=== PATIENT | female | born 1990 | race Hispanic/Latino ===

== ENCOUNTER → 2017-08-31 | Outpatient (CLI) | payer OTHER | END | disposition home or self-care (01) | LOC: RAH 11:06 | PROVIDERS: ATTEND Obstetrics & Gynecology | DX: Z34.82 Encounter for supervision of other normal pregnancy, second trimester (principal); Z3A.19 19 weeks gestation of pregnancy | CPT/HCPCS: 76805 ==

== ENCOUNTER 2018-01-21 05:48 | Inpatient (IN) | payer OTHER ==
[~2018-01-21] VITALS: Ht 167.6 cm; Wt 83.5 kg
[2018-01-21] MEDS ORDERED: LACTATED RINGERS 1000ML 1,000 ML IV PRN (06:10)
[2018-01-21] MEDS ORDERED: NALOXONE HCL 0.4 MG/1 ML ML IV PRN (06:15)
[2018-01-21] MEDS ORDERED: EPHEDRINE SULFATE 50 MG/ML AMPULE IVP PRN (06:15)
[2018-01-21] MEDS ORDERED: LACTATED RINGERS 500 ML 500 ML IV PRN (06:15)
[2018-01-21] MEDS ORDERED: ROPIVACAINE 0.2%200ML EPIDURAL 200 ML EP SCH (06:15)
[2018-01-21 06:46] LABS: HEMATOCRIT 37.1 % (36-48); MEAN CORPUSCULAR HEMOGLOBIN 29.8 pg (27.0-33.0); MEAN CORPUSCULAR HGB CONC 32.8 g/dL (32.0-36.0); PLATELET COUNT (AUTO) 211 K/uL (130-400); RED BLOOD CELL COUNT(AUTO) 4.08 MIL/uL (4.00-5.50); RED CELL DISTRIBUTION WIDTH 13.7 % (11.0-15.5); WHITE BLOOD COUNT (AUTO) 13.7 K/uL (4.8-10.8)
[2018-01-21 06:53] LABS: APPEARANCE,URINE Cloudy (CLEAR); BILIRUBIN,URINE Negative (NEGATIVE); COLOR,URINE Yellow (YELLOW); GLUCOSE, URINE (UA) Negative (NEGATIVE); KETONES,URINE Negative (NEGATIVE); LEUKOCYTE ESTERASE ,URINE Large (NEGATIVE); NITRATE,URINE Negative (NEGATIVE); OCCULT BLOOD,URINE Trace (NEGATIVE); PH,URINE 7.5 (5.0-8.0); PROTEIN,URINE Negative (NEGATIVE); UROBILINOGEN,URINE 0.2 mg/dL (0.2-1.0)
[2018-01-21] MEDS ORDERED: LACTATED RINGERS 1000ML 1,000 ML IV ONE (06:55)
[2018-01-21] MEDS ORDERED: OXYTOCIN 10 USP UNITS/ML ONE (06:55)
[2018-01-21 07:18] LABS: SQUAMOUS EPITHELIAL CELL,UR Moderate /HPF (0-2)
[2018-01-21 07:19] LABS: BACTERIA,URINE Many /HPF (None Seen); WBC,URINE 51-100 /HPF (0-1)
[2018-01-21 07:20] LABS: RBC,URINE 0-1 /HPF (0-1)
[2018-01-21] MEDS: OXYTOCIN 10 USP UNITS/ML 20 UNIT in LACTATED RINGERS 1000ML 1,000 ML IV SCH (07:42)
[2018-01-22] MEDS ORDERED: LACTATED RINGERS 1000ML 1,000 ML IV ONE (04:20)
[2018-01-22] MEDS ORDERED: OXYTOCIN 10 USP UNITS/ML ONE ×3 (04:20→13:19)
[2018-01-22] MEDS ORDERED: AMPICILLIN 2GM+NS 100ML 100 ML IV SCH (05:00)
[2018-01-22] MEDS: OXYTOCIN 10 USP UNITS/ML 20 UNIT in LACTATED RINGERS 1000ML 1,000 ML IV SCH (05:07)
[2018-01-22] MEDS ORDERED: FENTANYL CITRATE PF 50 MCG/1 ML 2ML VIAL ONE (07:54)
[2018-01-22] MEDS ORDERED: EPHEDRINE SULFATE 50 MG/ML AMPULE ONE (08:01)
[2018-01-22 08:22] LABS: HEPATITIS Bs ANTIGEN SCREEN P Negative (Negative)
[2018-01-22] MEDS ORDERED: LIDOCAINE HCL-MPF 1% 2ML VIAL ONE (11:21)
[2018-01-22] MEDS ORDERED: HYDROCODONE/ACETAMINOPHEN 5/325 MG TAB PO PRN (12:00)
[2018-01-22] MEDS ORDERED: MEASLES/MUMPS/RUBELLA VACCINE, LIVE 0.5 ML/VIAL SQ PRN (12:00)
[2018-01-22] MEDS ORDERED: ACETAMINOPHEN-CODEINE 300/30MG TAB PO PRN (12:00)
[2018-01-22] MEDS ORDERED: BENZOCAINE/LANOLIN/ALOE VERA 60 ML AEROSOL TP PRN (12:00)
[2018-01-22] MEDS ORDERED: WITCH HAZEL 1 PAD TP PRN (12:00)
[2018-01-22] MEDS ORDERED: DIPH,PERTUSS(ACELL),TET VAC/PF 0.5 ML VIAL IM PRN (12:00)
[2018-01-22] MEDS ORDERED: LANOLIN 30GM OINTMENT TP PRN (12:00)
[2018-01-22] MEDS ORDERED: ACETAMINOPHEN 325 MG TAB PO PRN (12:00)
[2018-01-22 13:43] VITALS: BP 115/53
[2018-01-22] MEDS ORDERED: PREN-68 PO (13:44)
[2018-01-22] MEDS: PROMETHAZINE HCL 25 MG/ML 1ML AMPULE IM SCH (14:45)
[2018-01-22] MEDS: MEPERIDINE-PF 50 MG/ML SYG IM SCH (14:45)
[2018-01-22] MEDS: IBUPROFEN 600 MG TABLET PO PRN ×2 (15:00→23:24)
[2018-01-22 15:59] VITALS: BP 112/59
[2018-01-22 19:56] VITALS: BP 101/66
[2018-01-22] MEDS: DOCUSATE SODIUM 100 MG CAP PO SCH (20:31)
[2018-01-22] MEDS: AMPICILLIN 1GM+NS 50ML 50 ML IV SCH (21:00)
[2018-01-23 00:04] VITALS: BP 100/61
[2018-01-23] MEDS: AMPICILLIN 1GM+NS 50ML 50 ML IV SCH ×4 (01:00→06:29)
[2018-01-23] MEDS: MEPERIDINE-PF 50 MG/ML SYG IM SCH (01:15)
[2018-01-23] MEDS: PROMETHAZINE HCL 25 MG/ML 1ML AMPULE IM SCH (01:15)
[2018-01-23 03:31] VITALS: BP 100/62
[2018-01-23] MEDS: IBUPROFEN 600 MG TABLET PO PRN ×2 (05:26→12:36)
[2018-01-23 07:50] VITALS: BP 95/51
[2018-01-23] MEDS: DOCUSATE SODIUM 100 MG CAP PO SCH (08:33)
[2018-01-23 13:00] VITALS: BP 101/62
== END 2018-01-23 14:50 | disposition home or self-care (01) | DRG 807 ==
LOC: LDH 05:48 → WSH 01-22 13:35 → EDSTATUS 02-02 05:47
PROVIDERS: ADMIT Obstetrics & Gynecology; ATTEND Obstetrics & Gynecology
PROC: 10E0XZZ Delivery of Products of Conception, External Approach (ICD-10-PCS; principal; 2018-01-22)
PROC: 0KQM0ZZ Repair Perineum Muscle, Open Approach (ICD-10-PCS; 2018-01-22)
PROC: 10907ZC Drainage of Amniotic Fluid, Therapeutic from Products of Conception, Via Natural or Artificial Opening (ICD-10-PCS; 2018-01-22)
PROC: 3E0R3BZ Introduction of Anesthetic Agent into Spinal Canal, Percutaneous Approach (ICD-10-PCS; 2018-01-22)
PROC: 00HU33Z Insertion of Infusion Device into Spinal Canal, Percutaneous Approach (ICD-10-PCS; 2018-01-22)
PROC: 3E0234Z Introduction of Serum, Toxoid and Vaccine into Muscle, Percutaneous Approach (ICD-10-PCS; 2018-01-22)
DX: O69.81X0 Labor and delivery complicated by cord around neck, without compression, not applicable or unspecified (principal); Z3A.38 38 weeks gestation of pregnancy; O36.8130 Decreased fetal movements, third trimester, not applicable or unspecified; O70.1 Second degree perineal laceration during delivery; Z37.0 Single live birth; Z23 Encounter for immunization
CPT/HCPCS: 36415; 81001; 85027; 86592; 86850; 86900; 86901; 87340; 90715; A4314; A4351; J0290; J2590; J3010; J3490; J7120

== ENCOUNTER → 2019-09-15 | Outpatient (CLI) | payer OTHER ==
[~2019-09-15] MED LIST: PREN-68 PO
[2019-09-15 09:06] LABS: BASOPHILS % (AUTO) 0.6 % (0.0-5.0); EOSINOPHILS % (AUTO) 1.1 % (0.0-8.0); HEMATOCRIT 40.6 % (36-48); LYMPHOCYTES % (AUTO) 26.7 % (21.0-51.0); MEAN CORPUSCULAR HEMOGLOBIN 30.2 pg (27.0-33.0); MEAN CORPUSCULAR HGB CONC 33.5 g/dL (32.0-36.0); MEAN CORPUSCULAR VOLUME 90.2 fL (79-99); MONOCYTES % (AUTO) 4.7 % (3.0-13.0); NEUTROPHILS % (AUTO) 66.7 % (40.0-77.0); PLATELET COUNT (AUTO) 290 K/uL (130-400); WHITE BLOOD COUNT (AUTO) 6.4 K/uL (4.8-10.8)
[2019-09-15 09:19] LABS: HEMOGLOBIN A1C 5.4 % (4.0-6.0)
[2019-09-15 09:28] LABS: ALBUMIN 3.8 g/dL (3.5-5.0); BILIRUBIN,TOTAL 0.8 mg/dL (0.2-1.0); CREATININE 0.8 mg/dL (0.5-1.5); POTASSIUM 3.9 mmol/L (3.5-5.1); THYROID STIMULATING HORMONE 1.77 uIU/mL (0.36-3.74); TOTAL PROTEIN, SERUM 7.4 g/dL (6.0-8.3)
== END | disposition home or self-care (01) ==
LOC: LAB 08:26
PROVIDERS: ATTEND Obstetrics & Gynecology
DX: Z13.1 Encounter for screening for diabetes mellitus (principal); Z13.89 Encounter for screening for other disorder; Z13.220 Encounter for screening for lipoid disorders; Z13.228 Encounter for screening for other metabolic disorders; Z13.0 Encounter for screening for diseases of the blood and blood-forming organs and certain disorders involving the immune mechanism
CPT/HCPCS: 36415; 80053; 80061; 82306; 83036; 84443; 85025

== ENCOUNTER → 2019-12-31 | Outpatient (CLI) | payer OTHER | END | disposition home or self-care (01) | LOC: RAH 10:00 | PROVIDERS: ATTEND Obstetrics & Gynecology | DX: Z34.91 Encounter for supervision of normal pregnancy, unspecified, first trimester (principal); Z3A.10 10 weeks gestation of pregnancy; N91.1 Secondary amenorrhea | CPT/HCPCS: 76801 ==

== ENCOUNTER → 2020-03-09 | Outpatient (CLI) | payer OTHER | END | disposition home or self-care (01) | LOC: RAH 03-08 14:19 | PROVIDERS: ATTEND Obstetrics & Gynecology | DX: Z36.3 Encounter for antenatal screening for malformations (principal); O32.1XX0 Maternal care for breech presentation, not applicable or unspecified; Z3A.21 21 weeks gestation of pregnancy | CPT/HCPCS: 76805 ==

== ENCOUNTER → 2020-05-14 | Outpatient (CLI) | payer OTHER | END | disposition home or self-care (01) | LOC: RAH 13:14 | PROVIDERS: ATTEND Obstetrics & Gynecology | DX: Z36.9 Encounter for antenatal screening, unspecified (principal); Z3A.31 31 weeks gestation of pregnancy | CPT/HCPCS: 76805 ==

== ENCOUNTER → 2020-06-25 | Outpatient (CLI) | payer OTHER ==
[2020-06-25 09:02] LABS: BASOPHILS % (AUTO) 0.4 % (0.0-5.0); EOSINOPHILS % (AUTO) 0.7 % (0.0-8.0); HEMATOCRIT 37.5 % (36-48); LYMPHOCYTES % (AUTO) 20.4 % (21.0-51.0); MEAN CORPUSCULAR HEMOGLOBIN 30.3 pg (27.0-33.0); MEAN CORPUSCULAR HGB CONC 33.3 g/dL (32.0-36.0); MEAN CORPUSCULAR VOLUME 90.8 fL (79-99); MONOCYTES % (AUTO) 4.2 % (3.0-13.0); NEUTROPHILS % (AUTO) 73.6 % (40.0-77.0); PLATELET COUNT (AUTO) 192 K/uL (130-400); RED BLOOD CELL COUNT(AUTO) 4.13 MIL/uL (4.00-5.50); RED CELL DISTRIBUTION WIDTH 12.7 % (11.0-15.5); WHITE BLOOD COUNT (AUTO) 9.5 K/uL (4.8-10.8)
[2020-06-25 09:12] LABS: AMPHET/METH SCREEN,URINE NEGATIVE (NEGATIVE); BARBITURATE SCREEN, URINE NEGATIVE (NEGATIVE); BENZODIAZEPINES SCREEN,URINE NEGATIVE (NEGATIVE); CANNABINOID SCREEN,URINE NEGATIVE (NEGATIVE); COCAINE SCREEN,URINE NEGATIVE (NEGATIVE); CREATININE,URINE RANDOM 62 mg/dL (30-135); OPIATE SCREEN,URINE NEGATIVE (NEGATIVE); PHENCYCLIDINE SCREEN,URINE NEGATIVE (NEGATIVE)
[2020-06-26 08:21] LABS: RAPID PLASMA REAGIN NONREACTIVE (NONREACTIVE)
== END | disposition home or self-care (01) ==
LOC: LAB 08:07
PROVIDERS: ATTEND Obstetrics & Gynecology
DX: Z36.89 Encounter for other specified antenatal screening (principal); Z3A.37 37 weeks gestation of pregnancy
CPT/HCPCS: 36415; 80305; 82570; 85025; 86592; 86701; 87088; 87390; 87486; 87797

== ENCOUNTER 2020-07-06 05:16 | Inpatient (IN) | payer OTHER ==
[~2020-07-06] VITALS: Ht 165.1 cm; Wt 88.5 kg
[2020-07-06] MEDS ORDERED: LACTATED RINGERS 1000ML 1,000 ML IV ONE (05:21)
[2020-07-06] MEDS ORDERED: OXYTOCIN-LR 20 UNITS/1000 ML 1,000 ML IV ONE (05:22)
[2020-07-06] MEDS ORDERED: EPHEDRINE SULFATE 50 MG/ML AMPULE IVP PRN (05:30)
[2020-07-06] MEDS ORDERED: LACTATED RINGERS 1000ML 1,000 ML IV PRN (05:30)
[2020-07-06] MEDS ORDERED: LACTATED RINGERS 500 ML 500 ML IV PRN (05:30)
[2020-07-06] MEDS ORDERED: NALOXONE HCL 0.4 MG/1 ML ML IV PRN (05:30)
[2020-07-06] MEDS ORDERED: OXYTOCIN-LR 20 UNITS/1000 ML 1,000 ML IV SCH ×2 (05:30→16:15)
[2020-07-06] MEDS ORDERED: ROPIVACAINE 0.2% 100ML VIAL 100 ML EP SCH (05:30)
[2020-07-06] MEDS ORDERED: BUTORPHANOL TARTRATE 2 MG/ML IVP PRN (05:45)
[2020-07-06] MEDS ORDERED: AMPICILLIN 2GM+NS 100ML 100 ML IV SCH (06:00)
[2020-07-06 06:06] LABS: APPEARANCE,URINE Clear (CLEAR); BILIRUBIN,URINE Negative (NEGATIVE); COLOR,URINE Yellow (YELLOW); GLUCOSE, URINE (UA) Negative (NEGATIVE); KETONES,URINE Negative (NEGATIVE); LEUKOCYTE ESTERASE ,URINE Negative (NEGATIVE); NITRATE,URINE Negative (NEGATIVE); OCCULT BLOOD,URINE Negative (NEGATIVE); PH,URINE 6.5 (5.0-8.0); PROTEIN,URINE Negative (NEGATIVE); UROBILINOGEN,URINE 0.2 mg/dL (0.2-1.0)
[2020-07-06 06:20] VITALS: BP 98/61
[2020-07-06] MEDS ORDERED: AMPICILLIN 2GM+NS 100ML 100 ML IV ONE (06:24)
[2020-07-06 06:30] LABS: HEMATOCRIT 33.8 % (36-48); MEAN CORPUSCULAR HEMOGLOBIN 30.9 pg (27.0-33.0); MEAN CORPUSCULAR HGB CONC 34.3 g/dL (32.0-36.0); MEAN CORPUSCULAR VOLUME 89.9 fL (79-99); RED BLOOD CELL COUNT(AUTO) 3.76 MIL/uL (4.00-5.50); RED CELL DISTRIBUTION WIDTH 12.9 % (11.0-15.5); WHITE BLOOD COUNT (AUTO) 9.5 K/uL (4.8-10.8)
[2020-07-06] MEDS ORDERED: FENTANYL CITRATE PF 50 MCG/1 ML 2ML VIAL ONE (09:47)
[2020-07-06] MEDS: AMPICILLIN 1GM+NS 50ML 50 ML IV SCH ×3 (10:27→23:56)
[2020-07-06] MEDS ORDERED: LIDOCAINE HCL 1% 20 ML VIAL ONE (15:08)
[2020-07-06] MEDS ORDERED: MEASLES/MUMPS/RUBELLA VACCINE, LIVE 0.5 ML/VIAL SQ PRN (16:15)
[2020-07-06] MEDS ORDERED: ACETAMINOPHEN 325 MG TAB PO PRN (16:15)
[2020-07-06] MEDS ORDERED: ACETAMINOPHEN WITH CODEINE 1 TAB TAB PO PRN (16:15)
[2020-07-06] MEDS ORDERED: BENZOCAINE/LANOLIN/ALOE VERA 60 ML AEROSOL TP PRN (16:15)
[2020-07-06] MEDS ORDERED: WITCH HAZEL 1 PAD TP PRN (16:15)
[2020-07-06] MEDS ORDERED: LANOLIN 30GM OINTMENT TP PRN (16:15)
[2020-07-06] MEDS ORDERED: DIPH,PERTUSS(ACELL),TET VAC/PF 0.5 ML VIAL IM PRN (16:15)
[2020-07-06 18:46] VITALS: BP 111/68
[2020-07-06 19:35] VITALS: BP 108/67
[2020-07-06] MEDS: IBUPROFEN 600 MG TABLET PO PRN (19:41)
[2020-07-06] MEDS ORDERED: DOCUSATE SODIUM 100 MG CAP PO SCH (21:00)
[2020-07-06 23:10] VITALS: BP 103/60
[2020-07-07 03:48] VITALS: BP 80/44
[2020-07-07] MEDS: AMPICILLIN 1GM+NS 50ML 50 ML IV SCH (06:00)
[2020-07-07 06:17] LABS: HEPATITIS Bs ANTIGEN SCREEN P Negative (Negative)
[2020-07-07 07:27] VITALS: BP 113/70
[2020-07-07] MEDS ORDERED: ONDANSETRON 4MG INJ IVP SCH (07:45)
[2020-07-07] MEDS ORDERED: MEPERIDINE-PF 25 MG/ML SYG IVP SCH (07:45)
[2020-07-07] MEDS ORDERED: ONDANSETRON 4MG INJ ONE (08:08)
[2020-07-07] MEDS ORDERED: MEPERIDINE-PF 25 MG/ML SYG ONE (08:08)
[2020-07-07] MEDS ORDERED: FENTANYL CITRATE PF 50 MCG/1 ML 2ML VIAL ONE (08:39)
[2020-07-07] MEDS ORDERED: LIDOCAINE 2%-EPI 1:200,000 20 ML VIAL IJ ONE (08:39)
[2020-07-07] MEDS ORDERED: MIDAZOLAM HCL 1 MG/ML 2ML VIAL ONE ×2 (08:41→09:04)
[2020-07-07] MEDS ORDERED: CEFAZOLIN SODIUM 1 GM VIAL ONE (08:54)
[2020-07-07] MEDS ORDERED: CALDOLOR 800MG+NS 250ML 250 ML IV ONE (08:54)
[2020-07-07] MEDS ORDERED: CEFAZOLIN SODIUM 1 GM VIAL IVP SCH (08:55)
[2020-07-07] MEDS ORDERED: PROPOFOL 10 MG/ML 20ML VIAL IV ONE (08:56)
[2020-07-07] MEDS ORDERED: CALDOLOR 800MG+NS 250ML 250 ML IV SCH (09:15)
[2020-07-07] MEDS ORDERED: HYDROCODONE/ACETAMINOPHEN 5/325 MG TAB PO PRN (09:45)
[2020-07-07] MEDS: IBUPROFEN 600 MG TABLET PO PRN (13:37)
[2020-07-07 16:48] VITALS: BP 93/53
== END 2020-07-07 18:00 | disposition home or self-care (01) | DRG 798 ==
LOC: LDH 05:16 → WSH 18:05
PROVIDERS: ADMIT Obstetrics & Gynecology; ATTEND Obstetrics & Gynecology
PROC: 10E0XZZ Delivery of Products of Conception, External Approach (ICD-10-PCS; principal; 2020-07-06)
PROC: 0KQM0ZZ Repair Perineum Muscle, Open Approach (ICD-10-PCS; 2020-07-06)
PROC: 10907ZC Drainage of Amniotic Fluid, Therapeutic from Products of Conception, Via Natural or Artificial Opening (ICD-10-PCS; 2020-07-06)
PROC: 10907ZC Drainage of Amniotic Fluid, Therapeutic from Products of Conception, Via Natural or Artificial Opening (ICD-10-PCS; 2020-07-06)
PROC: 3E0R3BZ Introduction of Anesthetic Agent into Spinal Canal, Percutaneous Approach (ICD-10-PCS; 2020-07-06)
PROC: 00HU33Z Insertion of Infusion Device into Spinal Canal, Percutaneous Approach (ICD-10-PCS; 2020-07-06)
PROC: 3E033VJ Introduction of Other Hormone into Peripheral Vein, Percutaneous Approach (ICD-10-PCS; 2020-07-06)
PROC: 3E0234Z Introduction of Serum, Toxoid and Vaccine into Muscle, Percutaneous Approach (ICD-10-PCS; 2020-07-06)
PROC: 3E0134Z Introduction of Serum, Toxoid and Vaccine into Subcutaneous Tissue, Percutaneous Approach (ICD-10-PCS; 2020-07-06)
PROC: 0UB70ZZ Excision of Bilateral Fallopian Tubes, Open Approach (ICD-10-PCS; 2020-07-07)
DX: O24.420 Gestational diabetes mellitus in childbirth, diet controlled (principal); Z37.0 Single live birth; O99.824 Streptococcus B carrier state complicating childbirth; Z3A.37 37 weeks gestation of pregnancy; O70.1 Second degree perineal laceration during delivery; Z30.2 Encounter for sterilization; Z23 Encounter for immunization
CPT/HCPCS: 36415; 81003; 82947; 85027; 86592; 86644; 86645; 86694; 86695; 86762; 86777; 86778; 86790; 86850; 86900; 86901; 87340; 90715; A4314; A4351; G0378; J0290; J0690; J1741; J2175; J2250; J2405; J2590; J2704; J2795; J3010; J3490; J7030; J7120

== ENCOUNTER 2022-01-13 15:15 | Inpatient (IN) | payer OTHER ==
[~2022-01-13] VITALS: Ht 165.1 cm; Wt 74.8 kg
[2022-01-13 11:38] LABS: BASOPHILS % (AUTO) 0.5 % (0.0-5.0); EOSINOPHILS % (AUTO) 0.7 % (0.0-8.0); HEMATOCRIT 41.1 % (36-48); LYMPHOCYTES % (AUTO) 34.7 % (21.0-51.0); MEAN CORPUSCULAR HEMOGLOBIN 29.4 pg (27.0-33.0); MEAN CORPUSCULAR HGB CONC 33.8 g/dL (32.0-36.0); MEAN CORPUSCULAR VOLUME 86.9 fL (79-99); MONOCYTES % (AUTO) 4.4 % (3.0-13.0); NEUTROPHILS % (AUTO) 59.5 % (40.0-77.0); PLATELET COUNT (AUTO) 273 K/uL (130-400); RED BLOOD CELL COUNT(AUTO) 4.73 MIL/uL (4.00-5.50); RED CELL DISTRIBUTION WIDTH 11.9 % (11.0-15.5); WHITE BLOOD COUNT (AUTO) 5.7 K/uL (4.8-10.8)
[2022-01-16] VITALS (21 sets, daily range): BP systolic 87–113; BP diastolic 47–65
[2022-01-16] MEDS ORDERED: CEFAZOLIN SODIUM 1 GM VIAL IVP SCH (06:30)
[2022-01-16] MEDS ORDERED: CALDOLOR 800MG+NS 250ML 250 ML IV SCH (06:30)
[2022-01-16] MEDS ORDERED: MORPHINE PF 100MG/10ML AMP IV ONE (06:53)
[2022-01-16] MEDS ORDERED: LACTATED RINGERS 1000ML 1,000 ML IV ONE (08:05)
[2022-01-16] MEDS ORDERED: MIDAZOLAM HCL 1 MG/ML 2ML VIAL ONE ×2 (08:40→09:52)
[2022-01-16] MEDS ORDERED: FENTANYL CITRATE PF 50 MCG/1 ML 2ML VIAL ONE (09:53)
[2022-01-16] MEDS ORDERED: PROPOFOL 10 MG/ML 20ML VIAL IV ONE (09:53)
[2022-01-16] MEDS ORDERED: ROCURONIUM 10MG/1ML SYR 10 MG/ML ML ONE (09:59)
[2022-01-16] MEDS ORDERED: CEFAZOLIN SODIUM 2 GM VIAL IV ONE (10:05)
[2022-01-16] MEDS ORDERED: EPHEDRINE SULFATE 50 MG/ML AMPULE ONE (10:18)
[2022-01-16] MEDS ORDERED: ONDANSETRON 4MG INJ ONE (10:36)
[2022-01-16] MEDS ORDERED: GLYCOPYRROLATE 1 MG/5 ML SYRINGE ONE (11:29)
[2022-01-16] MEDS ORDERED: NEOSTIGMINE 5MG/5ML SYR IV ONE (11:29)
[2022-01-16] MEDS ORDERED: ACETAMINOPHEN WITH CODEINE 1 TAB TAB PO PRN ×2 (12:00)
[2022-01-16] MEDS ORDERED: IBUPROFEN 800 MG TAB PO PRN (12:00)
[2022-01-16] MEDS ORDERED: BISACODYL 10 MG SUPP.RECT RC PRN (12:00)
[2022-01-16] MEDS ORDERED: MEPERIDINE-PF 75 MG/ML SYG IM PRN (12:00)
[2022-01-16] MEDS ORDERED: PROMETHAZINE HCL 25 MG/ML 1ML AMPULE IM PRN ×2 (12:00)
[2022-01-16] MEDS ORDERED: LORATADINE 10 MG TABLET PO PRN (13:00)
[2022-01-16] MEDS: ONDANSETRON 4MG INJ IVP PRN ×2 (13:33→18:23)
[2022-01-16] MEDS ORDERED: EPHEDRINE SULFATE 50 MG/ML AMPULE IVP PRN (14:00)
[2022-01-16] MEDS ORDERED: NALOXONE HCL 0.4 MG/1 ML ML IVP PRN (14:00)
[2022-01-16] MEDS ORDERED: DiphenhydrAMINE HCL 50 MG/ML VIAL IVP PRN (14:00)
[2022-01-16] MEDS ORDERED: ONDANSETRON 4MG INJ IVP PRN (14:00)
[2022-01-16] MEDS ORDERED: MEPERIDINE-PF 25 MG/ML SYG IV PRN (14:00)
[2022-01-16] MEDS: DEXTROSE 5 %-0.45 % NACL 1,000 ML IV PRN (16:23)
[2022-01-16] MEDS: CALDOLOR 800MG+NS 250ML 250 ML IV SCH (20:17)
[2022-01-17] MEDS: DEXTROSE 5 %-0.45 % NACL 1,000 ML IV PRN (01:23)
[2022-01-17] MEDS: CALDOLOR 800MG+NS 250ML 250 ML IV SCH (03:38)
[2022-01-17] MEDS: HYDROCODONE/ACETAMINOPHEN 5/325 MG TAB PO PRN ×3 (03:50→17:26)
[2022-01-17 03:53] VITALS: BP 105/54
[2022-01-17 07:34] VITALS: BP 91/58
[2022-01-17] MEDS: DOCUSATE SODIUM 100 MG CAP PO PRN ×2 (08:10→20:13)
[2022-01-17] MEDS: SIMETHICONE 80 MG TAB.CHEW PO PRN (08:10)
[2022-01-17] MEDS: IBUPROFEN 800 MG TAB PO SCH ×2 (11:12→20:12)
[2022-01-17 12:01] VITALS: BP 96/62
[2022-01-17] MEDS ORDERED: ONDANSETRON 4MG TABLET PO PRN (13:00)
[2022-01-17 16:20] VITALS: BP 105/61
[2022-01-17 19:27] VITALS: BP 92/55
[2022-01-17] MEDS: ACETAMINOPHEN WITH CODEINE 1 TAB TAB PO PRN (21:08)
[2022-01-17 23:05] VITALS: BP 90/58
[2022-01-18 03:17] VITALS: BP 94/57
[2022-01-18] MEDS: IBUPROFEN 800 MG TAB PO SCH ×2 (04:05→12:29)
[2022-01-18 07:10] VITALS: BP 93/59
[2022-01-18] MEDS: ACETAMINOPHEN WITH CODEINE 1 TAB TAB PO PRN (08:59)
[2022-01-18] MEDS: DOCUSATE SODIUM 100 MG CAP PO PRN (08:59)
[2022-01-18] MEDS: SIMETHICONE 80 MG TAB.CHEW PO PRN ×2 (08:59→12:28)
[2022-01-18 11:54] VITALS: BP 90/58
== END 2022-01-18 13:30 | disposition home or self-care (01) | DRG 747 ==
LOC: DAHIP 01-16 06:52 → WSH 01-16 12:25
PROVIDERS: ADMIT Obstetrics & Gynecology; ATTEND Obstetrics & Gynecology
PROC: 0WQN0ZZ Repair Female Perineum, Open Approach (ICD-10-PCS; 2022-01-16)
PROC: 0JQC0ZZ Repair Pelvic Region Subcutaneous Tissue and Fascia, Open Approach (ICD-10-PCS; 2022-01-16)
PROC: 0JQC0ZZ Repair Pelvic Region Subcutaneous Tissue and Fascia, Open Approach (ICD-10-PCS; principal; 2022-01-16 10:05)
DX: N81.11 Cystocele, midline (principal); Z20.822 Contact with and (suspected) exposure to COVID-19
CPT/HCPCS: 36415; 84703; 85025; 86850; 86900; 86901; 87426; A4351; G0378; J0690; J1741; J2250; J2274; J2405; J2704; J2710; J3010; J3490; J7030; J7120; Q0162

== ENCOUNTER 2024-03-28 03:17 | Emergency (ER) | payer OTHER ==
[~2024-03-28] VITALS: Ht 165.1 cm; Wt 62.1 kg
[2024-03-28] MEDS: LIDOCAINE/PRILOCAINE CREAM 5GM TUBE TP SCH (04:02)
[2024-03-28] MEDS: L.E.T. GEL 3ML SYG TP ONE ×2 (04:02)
[2024-03-28] MEDS: LIDOCAINE/PRILOCAINE CREAM 5GM TUBE TP ONE (04:03)
[2024-03-28] MEDS: LIDOCAINE HCL 1% 20 ML VIAL ONE (04:20)
--- NOTE | 2024-03-28 04:20 | NUR ---
INITIAL ORDER FOR L.E.T. GIVEN AT 03:43. L.E.T. IS LIQUID AND NOT GEL. ORDER CHANGED TO EMLA AT 03:44.
--- NOTE | 2024-03-28 04:24 | ERN ---
ED Note History of Present Illness Stated Complaint: FOREIGN BODY IN EAR Chief Complaint: Foreignbody Ear Time Seen by MD: 03:26 Dictation: 33-year-old female presents to the ER complaining of earring stuck inside of her ear cartilage. Patient mentioned that she went to sleep and woke up in the middle of the night feeling pain in the right ear lobe, she noticed that the small piece of candi of the tip of her earring was not visible, reports that her right lobe is painful, swollen, red. Allergies: Coded Allergies: No Known Drug Allergies (Unverified Allergy, Unknown, 01/21/18) Home Meds No Active Prescriptions or Reported Meds Past Medical History Past Medical History: No Pertinent History Surgical History: None Review of System Dictation NEGATIVE EXCEPT PER HPI Constitutional: Negative for fever,chills, and weight loss Eyes: Negative for injury, pain,redness, and discharge ENT: Negative for injury,pain or swelling Cardiovascular: denies chest pain, palpitations, and edema Respiratory: Negative for shortness of breath, cough, and wheezing, Abdomen/GI: Negative for abdominal pain, nausea, vomiting, diarrhea, and constipation Back: Negative for injury and pain : Negative for injury, bleeding and discharge MS/Extremity: Negative for injury and deformity Skin: Negative for rash, and discoloration Neuro: Negative for headache, weakness, numbness, tingling, and seizure Psych: Negative for suicide ideation, homicidal ideation, and hallucinations Initial Vital Sign VS Vital Signs Date Time Temp Pulse Resp B/P (MAP) Pulse Ox O2 Delivery O2 Flow Rate FiO2 03/28/24 03:22 98.2 56 16 100/54 99 Room Air 0 Physical Exam Dictation General: awake, alert, NAD Head/Face: Normocephalic, atraumatic Eyes: PERRL, EOMI, vision at baseline ENT: oral cavity clear, TMs clear, no signs of infection Neck: Trachea midline, supple, no nuchal rigidity Cardiovascular: RRR, normal S1/S2, No MRGs, no JVD Respiratory: CTAB, no respiratory distress, No rales or wheezes Abdomen: Soft , no tender Skin: Warm, dry, normal turgor, no rash MS/Extremity: Pulses equal, no cyanosis, neurovascular intact, FROM Neuro: COAx4, GCS 15, strength 5/5, CN 2-12 intact, normal cerebellar exam, normal gait, Psych: Normal behavior, mood, and affect normal ED Course ED Course Orders Procedure Category Date Status Time Lidocaine/Prilocaine PHA 03/28/24 Complete (Emla) 03:44 L.E.T. Gel 3ml Syg PHA 03/28/24 Complete (L.E.T. Gel 3ml Syg) 04:00 Lidocaine/Prilocaine PHA 03/28/24 In Process (Emla) 04:00 Lidocaine Hcl 1% 20ml PHA 03/28/24 Complete Vial (Lidocaine Hc 04:15 Mupirocin Ointment PHA 03/28/24 In Process (Bactroban Oint) 04:30 Current Medications Medications (Trade) Dose Ordered Sig/Devante Route PRN Reason Start Time Stop Time Status Last Admin Dose Admin Lidocaine HCl (Lidocaine HCl 1% 20ml Vial) 20 ml STK-MED ONCE .ROUTE 03/28/24 04:15 03/28/24 04:15 DC 03/28/24 04:20 Lidocaine/ Epinephrine (L.e.t. Gel 3ml Syg) 3 ml ONCE ONCE TP 03/28/24 04:00 03/28/24 04:02 DC Lidocaine/ Epinephrine (L.e.t. Gel 3ml Syg) 3 ml STK-MED ONCE TP 03/28/24 03:43 03/28/24 03:43 DC Lidocaine/ Prilocaine (Emla) 1 appl ONCE TP 03/28/24 04:00 04/27/24 03:59 03/28/24 04:02 Lidocaine/ Prilocaine (Emla) 1 appl STK-MED ONCE TP 03/28/24 03:44 03/28/24 03:45 DC Mupirocin (Bactroban Oint) 1 APPL ONCE TP 03/28/24 04:30 04/27/24 04:29 Vital Signs Date Time Temp Pulse Resp B/P (MAP) Pulse Ox O2 Delivery O2 Flow Rate FiO2 03/28/24 03:22 98.2 56 16 100/54 99 Room Air 0 Medical Decision Making MDM 33-year-old female who presents to the ER complaining of pain in the right year, she has and ear ringing lodged in the helix of right ear. It has erythema, swelling. Procedure was performed, the earring was dislodged and removed successfully. Mupirocin was prescribed. Procedure Procedure Dictation: There was an earring lodged in the helix of the left ear. There was surrounding erythema and swelling. The area was anesthetized with 0.5 cc of lidocaine 1% without epi. The earring was dislodged and removed successfully with no complications. There is minimal active bleeding. The bleeding stopped after applying pressure for small amount of time. DX & DISP Disposition: Discharge Departure Impression: Primary Impression: Embedded earring of right ear Condition: Stable Scripts No Active Prescriptions or Reported Meds Additional Instructions: RETURN TO ER FOR ANY ACUTE OR WORSENING SYMPTOMS. FOLLOW-UP IN 1-2 DAYS WITH PRIMARY PROVIDER FOR RECHECK OF TODAY'S SYMPTOMS. Referrals: HARINI EM NP (PCP) MACHO LOYA MD Mar 28, 2024 04:24 KAYE GRAHAM Mar 28, 2024 04:29
[2024-03-28] MEDS ORDERED: MUPIROCIN OINTMENT 22 GM TUBE TP SCH (04:30)
[2024-03-28] MEDS ORDERED: MUPI22OI2 TP (04:31)
[2024-03-28] MEDS: NEOMY SULF/BACITRA/POLYMYXIN B 1 EACH PACKET TP ONE (04:35)
[2024-03-28 04:49] VITALS: BP 108/61; PULSE 62; RESP 15; TEMP 98.1; O2SAT 99
== END 2024-03-28 04:49 | disposition home or self-care (01) ==
LOC: EDH 03:17
DX: S00.451A Superficial foreign body of right ear, initial encounter (principal); W45.8XXA Other foreign body or object entering through skin, initial encounter; Y93.89 Activity, other specified; Y92.89 Other specified places as the place of occurrence of the external cause; Y99.8 Other external cause status
CPT/HCPCS: 99284; J3490

== ENCOUNTER → 2024-05-07 | Outpatient (CLI) | payer OTHER ==
[~2024-05-07] MED LIST changes: +MUPI22OI2 TP; -PREN-68 PO
--- NOTE | 2024-05-07 11:15 | HMCIMG ---
ULTRASOUND VENOUS DOPPLER, BILATERAL LOWER EXTREMITIES INDICATION: Bilateral lower extremity pain and swelling TECHNIQUE: Routine grayscale and color Doppler ultrasound of the bilateral lower extremity veins performed. COMPARISON: No priors. FINDINGS: The demonstrated veins of the bilateral lower extremity including the common femoral vein, femoral vein, and popliteal vein are associated with normal compressibility, augmentation, and flow. Normal respiratory variation was identified. No evidence for echogenic intraluminal thrombus formation. IMPRESSION: No sonographic evidence for deep venous thrombosis within the bilateral lower extremity veins.
--- NOTE | 2024-05-07 11:16 | HMCIMG ---
ULTRASOUND ABDOMEN COMPLETE INDICATION: Generalized abdominal pain COMPARISON: None. FINDINGS: The liver is normal in size and echogenicity; no focal lesion demonstrated. The common bile duct caliber measures 3.0 mm. No evidence for calculi, sludge or pericholecystic fluid. No sonographic Colvin's sign elicited by the ultrasound sprayer operator. Wall thickness measures 2.0 mm. The spleen is normal in size and echotexture. The spleen measures 10.7 cm. Visible portions of the pancreas appear unremarkable. The right kidney measures 10.7 x 4.8 x 4.4 cm,and is normal in echogenicity, without evidence for hydronephrosis or shadowing stones. The left kidney measures 11.0 x 5.4 x 4.6 cm,and is normal in echogenicity, without evidence for hydronephrosis or shadowing stones. Visible portions of the abdominal aorta are within normal limits. Visible portions of the inferior vena cava are within normal limits. No free fluid demonstrated. IMPRESSION: No acute upper abdominal abnormality identified.
[2024-05-07 11:46] LABS: BASOPHILS # (AUTO) 0.03 K/uL (0.00-0.20); BASOPHILS % (AUTO) 0.6 % (0.0-5.0); EOSINOPHILS # (AUTO) 0.08 K/uL (0.00-0.70); EOSINOPHILS % (AUTO) 1.5 % (0.0-8.0); HEMATOCRIT 40.8 % (36-48); IMMATURE GRANULOCYTE ABSOLUTE 0.01 K/uL (0-1); LYMPHOCYTES # (AUTO) 1.8 K/uL (1.0-4.8); LYMPHOCYTES % (AUTO) 34.1 % (21.0-51.0); MEAN CORPUSCULAR HEMOGLOBIN 30.1 pg (27.0-33.0); MEAN CORPUSCULAR HGB CONC 33.3 g/dL (32.0-36.0); MEAN CORPUSCULAR VOLUME 90.3 fL (79-99); MONOCYTES # (AUTO) 0.3 K/uL (0.1-1.0); MONOCYTES % (AUTO) 4.7 % (3.0-13.0); NEUTROPHILS # (AUTO) 3.1 K/uL (1.8-7.7); NEUTROPHILS % (AUTO) 58.9 % (40.0-77.0); PLATELET COUNT (AUTO) 302 K/uL (130-400); RED BLOOD CELL COUNT(AUTO) 4.52 MIL/uL (4.00-5.50); RED CELL DISTRIBUTION WIDTH 11.9 % (11.0-15.5); WHITE BLOOD COUNT (AUTO) 5.3 K/uL (4.8-10.8)
[2024-05-07 12:03] LABS: HCG QUALITATIVE NEGATIVE (NEGATIVE); INR 0.96 (0.85-1.15); PROTHROMBIN TIME 10.8 SEC (9.6-11.6)
[2024-05-07 12:04] LABS: PARTIAL THROMBOPLASTIN TIME 27.3 SEC (26.3-35.5)
[2024-05-07 12:11] LABS: ALBUMIN 4.1 g/dL (3.5-5.0); BILIRUBIN,DIRECT 0.1 mg/dL (0.0-0.3); BILIRUBIN,TOTAL 0.4 mg/dL (0.2-1.0); CREATININE 0.5 mg/dL (0.5-1.0); POTASSIUM 3.8 mmol/L (3.5-5.1); THYROID STIMULATING HORMONE 1.1 uIU/mL (0.36-3.74); TOTAL PROTEIN, SERUM 7.7 g/dL (6.0-8.3)
[2024-05-07 12:19] LABS: HIV 1&2 ANTIBODY Non-Reactive (Negative); HIV-1 p24 Antigen Non-Reactive (Negative)
== END | disposition home or self-care (01) ==
LOC: RAH 10:22
PROVIDERS: ATTEND Nurse Practitioner Family
DX: R10.84 Generalized abdominal pain (principal); M79.89 Other specified soft tissue disorders
CPT/HCPCS: 36415; 76700; 80048; 80076; 84439; 84443; 84703; 85025; 85378; 85610; 85730; 86701; 86850; 86900; 86901; 87390; 93970